=== PATIENT | female | born 2000 | race Caucasian/White ===

== ENCOUNTER 2018-08-27 08:21 | Emergency (ER) | payer BC ==
[2018-08-27 08:26] VITALS: BP 136/67; TEMP 98.2; BMI 21.5
--- NOTE | 2018-08-27 08:43 | PDOC ---
History of Present Illness - General Chief Complaint: Pain Stated Complaint: FALL Time Seen by Provider: 08/27/18 08:42 History Source: Patient Exam Limitations: No Limitations - History of Present Illness Initial Comments: 08/27/18 08:42 18 yo F comes in c/o L foot/ankle pain s/p trip and fall yesterday while running to class. Denies head trauma, no LOC, no pain anywhere else. She broke her fall with her hands. NO hip/knee pain. (+)mild numbness/tignling at L foot/ ankle, no breaks in skin. Unable to bear weight to LLE due to pain. Pt took 2 aspirins at 5am due to pain 08/27/18 09:09 Past History - Past Medical History Allergies/Adverse Reactions: Allergies Allergy/AdvReac Type Severity Reaction Status Date / Time No Known Allergies Allergy Verified 08/27/18 08:27 Home Medications: Ambulatory Orders Ibuprofen 600 mg PO Q8H 3 Days #15 tablet 08/27/18 COPD: No - Immunization History Immunization Up to Date: Yes - Suicide/Smoking/Psychosocial Hx Smoking History: Never smoked Review of Systems - Review of Systems Able to Perform ROS?: Yes Constitutional: No: Chills, Fever, Malaise, Night Sweats HEENTM: No: Eye Pain, Recent change in vision, Throat Pain Respiratory: No: Cough, Shortness of Breath Cardiac (ROS): No: Chest Pain, Palpitations, Chest Tightness ABD/GI: No: Diarrhea, Nausea, Vomiting, Abdominal cramping : No: Dysuria, Hematuria Musculoskeletal: No: Back Pain Integumentary: No: Rash Neurological: No: Headache, Numbness, Dizziness Psychiatric: No: Change in Appetite Endocrine: No: Unexplained Weight Loss *Physical Exam - Vital Signs Last Vital Signs Temp Pulse Resp BP Pulse Ox 98.2 F 109 H 18 136/67 98 08/27/18 08:22 08/27/18 08:22 08/27/18 08:22 08/27/18 08:22 08/27/18 08:22 - Physical Exam General Appearance: Yes: Nourished. No: Apparent Distress HEENT: positive: [place], Normal ENT Inspection, Normal Voice. negative: Pale Conjunctivae, Scleral Icterus (R), Scleral Icterus (L) Neck: positive: Supple. negative: Decreased range of motion, Tender midline Respiratory/Chest: negative: Respiratory Distress, Accessory Muscle Use Cardiovascular: positive: Regular Rate Musculoskeletal: positive: Normal Inspection Extremity: positive: Normal Capillary Refill, Normal Inspection, Other (LLE with no skin changes, mild swelling, diffuse tenderness L foot/ankle with limited ROM and decreased strength due to pain, Good DP/PT pulses, good cap refill, full sensory function. L knee and toes unremarkable with FROM, non tender). negative: Pedal Edema Integumentary: positive: Normal Color, Dry. negative: Jaundice, Rash Neurologic: positive: Fully Oriented, Alert, Normal Mood/Affect Medical Decision Making - Medical Decision Making 08/27/18 09:17 18 yo F w/ likely ankle/foot sprain, will do xrays, give tylenol (because she just took aspirin) and will reassess 08/27/18 09:37 xray shows no fractures. Frank place in an aircast, will give crutches, weight bearing as tolerated. Ortho follow up in a week RICE Motrin PRN for pain Return for worsening/concerning symptoms Pt and aunt verbalize understanding and agree with plan *DC/Admit/Observation/Transfer Diagnosis at time of Disposition: Left ankle sprain Qualifiers: Encounter type: initial encounter Involved ligament of ankle: unspecified ligament Qualified Code(s): S93.402A - Sprain of unspecified ligament of left ankle, initial encounter Injury of foot, left Qualifiers: Encounter type: initial encounter Qualified Code(s): S99.922A - Unspecified injury of left foot, initial encounter - Discharge Dispostion Disposition: HOME Condition at time of disposition: Stable - Referrals Referrals: Bryant Ramon DO [Staff Physician] - - Patient Instructions Printed Discharge Instructions: DI for Ankle Sprain, DI for Foot Sprain, How To Perform RICE (Rest, Ice, Compress, Elevate) Additional Instructions: Rest, apply ice and compression, elevate the LLE above heart level. Weight bearing as tolerated to Left lower extremity. Please call Dr. Ramon to make an appointment for a week from today. Return for worsening/concerning symptoms. Take ibuprofen as needed for pain - Post Discharge Activity
[2018-08-27] MEDS ORDERED: ACETAMINOPHEN 500 MG TABLET (FP) PO ONE (08:53)
[2018-08-27] MEDS ORDERED: ACETAMINOPHEN 500 MG TABLET (FP) ONE (09:18)
[2018-08-27 09:44] VITALS: PULSE 82
== END 2018-08-27 09:47 | disposition home or self-care (01) ==
LOC: JERFT 08:21
PROC: 2W3RX1Z Immobilization of Left Lower Leg using Splint (ICD-10-PCS; principal; 2018-08-27)
DX: S93.402A Sprain of unspecified ligament of left ankle, initial encounter (principal); W18.39XA Other fall on same level, initial encounter; Y93.02 Activity, running; Y92.214 College as the place of occurrence of the external cause; Y99.8 Other external cause status
CPT/HCPCS: 73610-TC-LT-FY; 73630-TC-LT; 99282-25